=== PATIENT | male | born 2000 | race Hispanic/Latino ===

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

== ENCOUNTER 2021-05-26 19:09 | Emergency (ER) | payer MEDICAID ==
[~2021-05-26] VITALS: Ht 172.7 cm; Wt 79.4 kg
[2021-05-26 19:55] LABS: APPEARANCE,URINE Clear (CLEAR); BILIRUBIN,URINE Negative (NEGATIVE); COLOR,URINE Yellow (YELLOW); GLUCOSE, URINE (UA) Negative (NEGATIVE); KETONES,URINE >=160 mg/dL (NEGATIVE); LEUKOCYTE ESTERASE ,URINE Negative (NEGATIVE); NITRATE,URINE Negative (NEGATIVE); OCCULT BLOOD,URINE Negative (NEGATIVE); PH,URINE 6.5 (5.0-8.0); PROTEIN,URINE POS 1+ mg/dL (NEGATIVE)
[2021-05-26 19:56] LABS: HEMATOCRIT 43.5 % (42-54); MEAN CORPUSCULAR HEMOGLOBIN 27.5 pg (27.0-33.0); MEAN CORPUSCULAR HGB CONC 33.1 g/dL (32.0-36.0); MONOCYTES % (AUTO) 5.8 % (3.0-13.0); NEUTROPHILS % (AUTO) 87.9 % (40.0-77.0); PLATELET COUNT (AUTO) 132 K/uL (130-400); RED BLOOD CELL COUNT(AUTO) 5.24 MIL/uL (4.50-6.20); WHITE BLOOD COUNT (AUTO) 9.7 K/uL (4.8-10.8)
[2021-05-26 19:57] LABS: BASOPHILS % (AUTO) 0.1 % (0.0-5.0)
[2021-05-26] MEDS ORDERED: MORPHINE 2 MG SYG IVP ONE (20:00)
[2021-05-26] MEDS ORDERED: ONDANSETRON 4MG INJ IVP ONE (20:00)
[2021-05-26] MEDS ORDERED: 0.9%NACL 1000ML 1,000 ML IV ONE ×2 (20:00→20:19)
[2021-05-26 20:10] LABS: ALANINE AMINOTRANSFERASE 35 U/L (12-78); ALBUMIN 4.9 g/dL (3.5-5.0); AMYLASE 36 U/L (25-115); ASPARTATE AMINOTRANSFERASE 36 U/L (10-37); BILIRUBIN,TOTAL 0.5 mg/dL (0.2-1.0); CARBON DIOXIDE 24 mmol/L (21-32); CHLORIDE 102 mmol/L (101-111); CREATININE 0.9 mg/dL (0.5-1.5); GLOMERULAR FILTR. RATE CALC 114 mL/min (>60); GLUCOSE,RANDOM 97 mg/dL (70-105); LIPASE < 50 U/L (114-286); POTASSIUM 3.7 mmol/L (3.5-5.1); SODIUM SERUM 141 mmol/L (136-145); TOTAL PROTEIN, SERUM 8.6 g/dL (6.0-8.3); UREA NITROGEN, BLOOD 16 mg/dL (7-18)
[2021-05-26 20:14] LABS: BACTERIA,URINE Rare /HPF (None Seen); MUCUS,URINE Moderate LPF (None Seen); SQUAMOUS EPITHELIAL CELL,UR Few /HPF (0-2); WBC,URINE 0-1 /HPF (0-1)
[2021-05-26] MEDS ORDERED: MORPHINE 2 MG SYG ONE (20:18)
[2021-05-26] MEDS ORDERED: ONDANSETRON 4MG INJ ONE (20:18)
[2021-05-26] MEDS ORDERED: CIPR-278 PO (21:06)
[2021-05-26] MEDS ORDERED: DICY20TA2 PO (21:06)
[2021-05-26] MEDS ORDERED: METR375C2 PO (21:06)
[2021-05-26] MEDS ORDERED: ONDA4TAB10 PO (21:06)
[2021-05-26 21:18] VITALS: BP 134/74
[2021-05-26] MEDS ORDERED: METRONIDAZOLE 500 MG TABLET PO SCH (21:30)
[2021-05-26] MEDS ORDERED: LEVOFLOXACIN 500 MG TABLET PO SCH (21:30)
== END 2021-05-26 21:31 | disposition home or self-care (01) ==
LOC: EDH 19:09
DX: K51.00 Ulcerative (chronic) pancolitis without complications (principal); R11.2 Nausea with vomiting, unspecified; Z79.899 Other long term (current) drug therapy
CPT/HCPCS: 36415; 74176; 80053; 81001; 82150; 83690; 85025; 96361; 96374; 96375; 99284; J2405; J7030

== ENCOUNTER 2021-05-27 05:22 | Inpatient (IN) | payer MEDICAID ==
[~2021-05-27] VITALS: Ht 172.7 cm; Wt 79.7 kg
[~2021-05-27 05:22] MED LIST: CIPR-278 PO; DICY20TA2 PO; METR375C2 PO; ONDA4TAB10 PO
[2021-05-27] MEDS ORDERED: HYOSCYAMINE SULFATE 0.125 MG TAB.SUBL SL ONE (06:00)
[2021-05-27] MEDS ORDERED: ONDANSETRON 4MG INJ IVP ONE (06:00)
[2021-05-27] MEDS ORDERED: 0.9%NACL 1000ML 1,000 ML IV ONE (06:00)
[2021-05-27] MEDS ORDERED: PANTOPRAZOLE 40 MG/VIAL IVP ONE (06:00)
[2021-05-27 06:02] LABS: BASOPHILS % (AUTO) 0.2 % (0.0-5.0); EOSINOPHILS % (AUTO) 0.2 % (0.0-8.0); HEMATOCRIT 37.9 % (42-54); LYMPHOCYTES % (AUTO) 9.5 % (21.0-51.0); MEAN CORPUSCULAR HEMOGLOBIN 27.8 pg (27.0-33.0); MEAN CORPUSCULAR HGB CONC 33.2 g/dL (32.0-36.0); MEAN CORPUSCULAR VOLUME 83.5 fL (80-100); MONOCYTES % (AUTO) 9.7 % (3.0-13.0); NEUTROPHILS % (AUTO) 79.8 % (40.0-77.0); PLATELET COUNT (AUTO) 105 K/uL (130-400); RED BLOOD CELL COUNT(AUTO) 4.54 MIL/uL (4.50-6.20); WHITE BLOOD COUNT (AUTO) 6.3 K/uL (4.8-10.8)
[2021-05-27 06:20] LABS: ALANINE AMINOTRANSFERASE 24 U/L (12-78); ALBUMIN 3.8 g/dL (3.5-5.0); ASPARTATE AMINOTRANSFERASE 22 U/L (10-37); BILIRUBIN,TOTAL 0.3 mg/dL (0.2-1.0); CARBON DIOXIDE 23 mmol/L (21-32); CHLORIDE 104 mmol/L (101-111); GLOMERULAR FILTR. RATE CALC 101 mL/min (>60); GLUCOSE,RANDOM 113 mg/dL (70-105); POTASSIUM 3.3 mmol/L (3.5-5.1); SODIUM SERUM 140 mmol/L (136-145); TOTAL PROTEIN, SERUM 7.2 g/dL (6.0-8.3); UREA NITROGEN, BLOOD 12 mg/dL (7-18)
[2021-05-27 06:22] LABS: LIPASE < 50 U/L (114-286)
[2021-05-27 06:56] LABS: APPEARANCE,URINE Clear (CLEAR); BILIRUBIN,URINE Negative (NEGATIVE); COLOR,URINE Yellow (YELLOW); GLUCOSE, URINE (UA) Negative (NEGATIVE); KETONES,URINE 40 mg/dL (NEGATIVE); LEUKOCYTE ESTERASE ,URINE Negative (NEGATIVE); NITRATE,URINE Negative (NEGATIVE); OCCULT BLOOD,URINE Negative (NEGATIVE); PROTEIN,URINE Negative (NEGATIVE); UROBILINOGEN,URINE 0.2 mg/dL (0.2-1.0)
[2021-05-27] MEDS ORDERED: ONDANSETRON 4MG INJ IVP PRN (08:00)
[2021-05-27] MEDS ORDERED: ACETAMINOPHEN 325 MG TAB PO PRN (08:00)
[2021-05-27] MEDS: DEXTROSE 5 %-0.45 % NACL 1,000 ML IV SCH ×2 (08:19→19:00)
[2021-05-27] MEDS: LEVOFLOXACIN 500 MG/D5W 100 ML 100 ML IV SCH (08:19)
[2021-05-27] MEDS: METRONIDAZOLE 500MG/100ML BAG 100 ML IVPB SCH ×2 (13:23→22:00)
[2021-05-27] MEDS ORDERED: KCL 20 MEQ ERTAB PO ONE (15:35)
[2021-05-27] MEDS: MORPHINE 2 MG SYG IVP PRN ×2 (15:44→22:30)
[2021-05-27] MEDS ORDERED: POTASSIUM CHLORIDE 10% ELIXIR 20 MEQ/15 ML UDCUP PO PRN (16:00)
[2021-05-27] MEDS ORDERED: POTASSIUM CHLORIDE 20MEQ/100ML 100 ML IV PRN (16:00)
[2021-05-27] MEDS ORDERED: LIDOCAINE HCL-MPF 1% 2ML VIAL IJ PRN (16:00)
[2021-05-27] MEDS ORDERED: MAGNESIUM 2GM PREMIX 50ML 50 ML IV PRN (18:30)
[2021-05-27 19:18] VITALS: BP 136/57
[2021-05-27] MEDS: KCL 20 MEQ ERTAB PO PRN ×2 (19:41→22:31)
[2021-05-27] MEDS ORDERED: METRONIDAZOLE 500 MG TABLET ONE (22:24)
[2021-05-28 00:02] VITALS: BP 131/74
[2021-05-28 04:15] VITALS: BP 112/59
[2021-05-28 04:23] LABS: HEMATOCRIT 36.4 % (42-54); MEAN CORPUSCULAR HEMOGLOBIN 27.4 pg (27.0-33.0); MEAN CORPUSCULAR VOLUME 83.1 fL (80-100); RED BLOOD CELL COUNT(AUTO) 4.38 MIL/uL (4.50-6.20); RED CELL DISTRIBUTION WIDTH 13.2 % (11.0-15.5)
[2021-05-28 04:36] LABS: POTASSIUM 4.4 mmol/L (3.5-5.1)
[2021-05-28] MEDS: DEXTROSE 5 %-0.45 % NACL 1,000 ML IV SCH (05:49)
[2021-05-28] MEDS: METRONIDAZOLE 500MG/100ML BAG 100 ML IVPB SCH ×3 (05:49→21:12)
[2021-05-28 08:00] VITALS: BP 114/67
[2021-05-28] MEDS: LEVOFLOXACIN 500 MG/D5W 100 ML 100 ML IV SCH (08:15)
[2021-05-28 12:00] VITALS: BP 126/78
[2021-05-28 16:00] VITALS: BP 118/66
[2021-05-28] MEDS: METRONIDAZOLE 500 MG TABLET PO SCH (16:19)
[2021-05-28 20:04] VITALS: BP 120/67
[2021-05-29 00:04] VITALS: BP 120/77
[2021-05-29] MEDS: METRONIDAZOLE 500 MG TABLET PO SCH ×4 (00:14→23:19)
[2021-05-29] MEDS: DEXTROSE 5 %-0.45 % NACL 1,000 ML IV SCH ×3 (00:14→20:49)
[2021-05-29 04:04] VITALS: BP 111/67
[2021-05-29] MEDS: METRONIDAZOLE 500MG/100ML BAG 100 ML IVPB SCH ×3 (05:57→20:49)
[2021-05-29 08:00] VITALS: BP 112/74
[2021-05-29] MEDS: LEVOFLOXACIN 500 MG/D5W 100 ML 100 ML IV SCH ×2 (08:00→09:18)
[2021-05-29 12:00] VITALS: BP 119/76
[2021-05-29] MEDS ORDERED: PEG 3350/NA SULF,BICARB,CL/KCL 4000 ML SOLN PO SCH (12:00)
[2021-05-29] MEDS: MAGNESIUM CITRATE 296 ML SOLUTION PO SCH (14:29)
[2021-05-29 16:00] VITALS: BP 119/70
[2021-05-29 20:27] VITALS: BP 128/75
[2021-05-30] VITALS (22 sets, daily range): BP systolic 110–158; BP diastolic 60–85
[2021-05-30] MEDS: METRONIDAZOLE 500MG/100ML BAG 100 ML IVPB SCH (05:41)
[2021-05-30] MEDS: METRONIDAZOLE 500 MG TABLET PO SCH ×3 (05:41→23:24)
[2021-05-30] MEDS: DEXTROSE 5 %-0.45 % NACL 1,000 ML IV SCH ×2 (05:42→16:00)
[2021-05-30 09:35] LABS: HEMATOCRIT 40.3 % (42-54); MEAN CORPUSCULAR HEMOGLOBIN 27.5 pg (27.0-33.0); MEAN CORPUSCULAR VOLUME 83.4 fL (80-100); RED BLOOD CELL COUNT(AUTO) 4.83 MIL/uL (4.50-6.20); WHITE BLOOD COUNT (AUTO) 5.3 K/uL (4.8-10.8)
[2021-05-30 09:52] LABS: ALBUMIN 3.4 g/dL (3.5-5.0); BILIRUBIN,DIRECT 0.1 mg/dL (0.0-0.3); BILIRUBIN,TOTAL 0.5 mg/dL (0.2-1.0); CREATININE 0.9 mg/dL (0.5-1.5); POTASSIUM 4.1 mmol/L (3.5-5.1); TOTAL PROTEIN, SERUM 7.2 g/dL (6.0-8.3)
[2021-05-30] MEDS ORDERED: PROPOFOL 10 MG/ML 20ML VIAL IV ONE (10:43)
[2021-05-30] MEDS: MAGNESIUM CITRATE 296 ML SOLUTION PO SCH (12:00)
[2021-05-30] MEDS: PHARMACY COMMUNICATION MISC SCH ×4 (13:30→23:24)
[2021-05-30] MEDS ORDERED: MORPHINE 2 MG SYG IVP PRN (18:00)
[2021-05-31] MEDS: DEXTROSE 5 %-0.45 % NACL 1,000 ML IV SCH ×2 (02:39→12:14)
[2021-05-31] MEDS: PHARMACY COMMUNICATION MISC SCH ×3 (03:20→13:30)
[2021-05-31 03:28] VITALS: BP 115/67
[2021-05-31] MEDS: METRONIDAZOLE 500 MG TABLET PO SCH ×2 (06:13→15:14)
[2021-05-31 07:10] VITALS: BP 113/72
[2021-05-31] MEDS: LEVOFLOXACIN 500 MG/D5W 100 ML 100 ML IV SCH (07:39)
[2021-05-31] MEDS ORDERED: NON-FORMULARY MEDICATION 1 EACH PO SCH (09:00)
[2021-05-31] MEDS ORDERED: PANTOPRAZOLE 40 MG TAB DR PO SCH (09:00)
[2021-05-31 10:17] LABS: HEMATOCRIT 43.8 % (42-54); MEAN CORPUSCULAR HEMOGLOBIN 26.7 pg (27.0-33.0); MEAN CORPUSCULAR HGB CONC 32.6 g/dL (32.0-36.0); MEAN CORPUSCULAR VOLUME 81.9 fL (80-100); RED BLOOD CELL COUNT(AUTO) 5.35 MIL/uL (4.50-6.20); RED CELL DISTRIBUTION WIDTH 12.9 % (11.0-15.5); WHITE BLOOD COUNT (AUTO) 7.7 K/uL (4.8-10.8)
[2021-05-31 10:33] LABS: CREATININE 0.9 mg/dL (0.5-1.5); POTASSIUM 3.8 mmol/L (3.5-5.1)
[2021-05-31 11:25] VITALS: BP 134/78
[2021-05-31] MEDS: MAGNESIUM CITRATE 296 ML SOLUTION PO SCH (12:00)
[2021-05-31 15:00] VITALS: BP 135/80
== END 2021-05-31 15:35 | disposition home or self-care (01) | DRG 248 ==
LOC: EDH 05:22 → EDHIP 05:23 → 3AH 17:55 → UNDODISIN 05-30 12:48
PROVIDERS: ADMIT Internal Medicine Infectious Disease; ATTEND Internal Medicine Infectious Disease
PROC: 0DB98ZX Excision of Duodenum, Via Natural or Artificial Opening Endoscopic, Diagnostic (ICD-10-PCS; principal; 2021-05-30)
PROC: 0DB68ZX Excision of Stomach, Via Natural or Artificial Opening Endoscopic, Diagnostic (ICD-10-PCS; 2021-05-30)
PROC: 0DB58ZX Excision of Esophagus, Via Natural or Artificial Opening Endoscopic, Diagnostic (ICD-10-PCS; 2021-05-30)
PROC: 0DBK8ZX Excision of Ascending Colon, Via Natural or Artificial Opening Endoscopic, Diagnostic (ICD-10-PCS; 2021-05-30)
PROC: 0DBL8ZX Excision of Transverse Colon, Via Natural or Artificial Opening Endoscopic, Diagnostic (ICD-10-PCS; 2021-05-30)
PROC: 0DBP8ZX Excision of Rectum, Via Natural or Artificial Opening Endoscopic, Diagnostic (ICD-10-PCS; 2021-05-30)
PROC: 0DBM8ZX Excision of Descending Colon, Via Natural or Artificial Opening Endoscopic, Diagnostic (ICD-10-PCS; 2021-05-30)
PROC: 0DBH8ZX Excision of Cecum, Via Natural or Artificial Opening Endoscopic, Diagnostic (ICD-10-PCS; 2021-05-30)
DX: A04.5 Campylobacter enteritis (principal); D69.6 Thrombocytopenia, unspecified; D62 Acute posthemorrhagic anemia; K21.00 Gastro-esophageal reflux disease with esophagitis, without bleeding; K29.00 Acute gastritis without bleeding; K51.00 Ulcerative (chronic) pancolitis without complications; K31.89 Other diseases of stomach and duodenum; K64.0 First degree hemorrhoids
CPT/HCPCS: 36415; 43239; 45380; 74176; 80048; 80053; 80076; 81001; 81003; 82150; 83690; 85025; 85027; 87507; 88305; 88342; 96361; 96374; 96375; A4606; C9113; G0378; J1956; J2405; J2704; J3490; J7030; J7042

== ENCOUNTER 2022-11-09 16:00 | Emergency (ER) | payer MEDICAID ==
[~2022-11-09] VITALS: Ht 170.2 cm; Wt 73.5 kg
[2022-11-09 19:14] VITALS: BP 143/91
== END 2022-11-09 19:19 | disposition left against medical advice (07) ==
LOC: EDH 16:00
DX: R10.30 Lower abdominal pain, unspecified (principal); M79.18 Myalgia, other site; Z98.890 Other specified postprocedural states
CPT/HCPCS: 99281